=== PATIENT | female | born 1990 | race Caucasian/White ===

== ENCOUNTER 2024-06-18 19:33 | Observation (INO) | payer MEDICAID, SELFPAY ==
[2024-06-18 19:35] VITALS: BP 112/70; PULSE 97; RESP 16; RESP 98; TEMP 36.7; O2SAT 99
[2024-06-18 19:40] VITALS: BP 112/70; PULSE 97; RESP 16; TEMP 36.7
--- NOTE | 2024-06-18 20:04 | XR_ITS ---
Examination: Biophysical profile, ultrasound Date and time of exam: June 18, 2024 2024 hrs. Indications: Post dates, labor evaluation, history cholestasis of diagnosis Technique: Multiple transabdominal sonographic images of the pelvis abdomen obtained. Attention is directed to the breathing movement, gross body movement, amniotic fluid volume and tone. Findings: Amniotic fluid index 10.4 cm Total biophysical profile is 8 of 8. breathing movement is 2. Gross body movement is 2. tone is 2. Qualitative amniotic fluid volume is 2 Impression: Biophysical profile is 8 of 8.
--- NOTE | 2024-06-18 20:04 | XR_ITS ---
Examination: Complete OB ultrasound greater than 14 weeks Date and time of exam: June 18, 2024 Indications: Post dates, labor evaluation, diagnosis cholestasis of Findings: Viable intrauterine single fetus with single amniotic sac presentation cephalic spine anterior Cardiac motion 152 BPM Placenta anterior grade 3 Clinical cord insertion seen Amniotic fluid index 10.1 cm spine anterior Cervix 3.4 cm Ovaries obscured by bowel gas. Composite estimated gestational age based on BPD, head circumference, abdominal circumference, femur length is 39 weeks 4 days Estimated weight 3813 g. Survey of intracranial anatomy, spinal anatomy, abdominal anatomy, four-chamber heart performed with no abnormalities identified. Impression: Viable intrauterine gestation cephalic presentation
[2024-06-18 20:07] VITALS: BMI 38.2
[2024-06-18 20:08] VITALS: TEMP 36.7
== END 2024-06-18 21:45 | disposition home or self-care (01) ==
PROVIDERS: Admitting Provider Advanced Practice Midwife; Visit Provider Obstetrics & Gynecology
DX: Z34.83 Encounter for supervision of other normal pregnancy, third trimester (principal); Z3A.40 40 weeks gestation of pregnancy
CPT/HCPCS: 59025; 59899; 76805; 76819

== ENCOUNTER 2024-06-20 04:44 | Inpatient (IN) | payer MEDICAID, SELFPAY ==
[2024-06-20] VITALS (193 sets, daily range): BP systolic 110–173; BP diastolic 56–99; PULSE 71–107; RESP 15–18; TEMP 36.7–36.9; O2SAT 79–100; BMI 38.0
[2024-06-20 05:35] LABS: ROM Kit Lot # 5705
[2024-06-20 05:36] LABS: ROM Swab Mixed By: DELEN1; Swb Mxed in Solvent 1 min? Yes
[2024-06-20 05:42] LABS: Rupture of Fetal Membranes Positive (Negative)
[2024-06-20 05:55] LABS: Basophils % (Auto) 0 % (0-2.5); Eosinophils # (Auto) 0.1 Thou/mm3 (0.0-0.5); Eosinophils % (Auto) 1 % (0-10); Hematocrit 37.1 % (36.0-46.0); Hemoglobin 13.6 g/dL (12.0-16.0); Immature Granulocytes % (Auto) 0 % (0-0); Immature Granulocytes Auto 0.04 Thou/mm3 (0.00-0.00); Lymphocytes # (Auto) 1.6 Thou/mm3 (1.0-4.8); Lymphocytes % (Auto) 18 % (10-50); Mean Corpuscular HGB Conc 36.7 g/dl (31.0-37.0); Mean Corpuscular Hemoglobin 33.8 pg (25.0-35.0); Mean Corpuscular Volume 92 fL (80-100); Monocytes # (Auto) 0.7 Thou/mm3 (0.0-0.8); Monocytes % (Auto) 8 % (0-12); Neutrophils # (Auto) 6.5 Thou/mm3 (1.8-7.7); Neutrophils % (Auto) 72 % (37-80); Nucleated Red Blood Cell % 0 /100 WBC (0); Platelet Count 235 Thou/mm3 (140-440); RDW Standard Deviation 45.8 fL (36.4-46.3); Red Blood Count 4.02 Miln/mm3 (4.00-5.20); White Blood Count 9.1 Thou/mm3 (3.6-11.0)
[2024-06-20 06:33] LABS: Syphilis Nonreactive (Nonreactive)
--- NOTE | 2024-06-20 07:26 | PD.LDHP ---
Documentation for date of: 06/20/24 OB Labor/Induct. HPI History of Present Illness Chief complaint: labor : 4 Para: 3 Term pregnancies: 3 pregnancies: 0 Living children: 3 History of Abortions: Spontaneous and Elective: 0 History of Vaginal deliveries: 0 History of sections: No History of : No Date of last menstrual period: 08/14/23 URSZULA: 06/14/24 Gestational Age (weeks): 40 Gestational Age (days): 6 Gestational age based on last menstrual period: 44 History of present illness: 34-year-old 4 para 3 admit to labor and delivery complains of leaking fluid at 4 in the morning. Patient is been followed at care at [facility]. First visit 11 weeks. Last period was August 14, 2023. Given a due date May 20, 2024. Patient is still breast-feeding. She had her first ultrasound in November she was 12 weeks and was changed due date to June 14, 2024 and started 25 and growth has been appropriate another anatomy scans. Patient is O+, antibody screen negative, RPR nonreactive, rubella immune, hepatitis B-, hep C negative, HIV negative, GC and Chlamydia were negative. Patient had a abnormal 1 hour. And her GTT was normal she denies social habits. Denies surgery. Denies chronic illness. And GBS is negative History of Present Dating criteria: LMP confirmed by 1st trimester US Adequate Care: Yes Ultrasounds: normal 1st trimester US and normal mid trimester US Obstetrical complications: none Medical complications: none Labs Labs: Negative: Hepatitis B, HIV, Chlamydia, Gonorrhea and Group Beta Strep Review of Systems Review of Systems Systems Reviewed: All systems reviewed, normal except as documented Past Medical History Surgical History SURGICAL: Negative Section Meds Home Medications and Allergies Home Medications ?Medication ?Instructions ?Recorded ?Confirmed ?Type vit no.95-ferrous 1 tab PO QDAY 06/18/24 06/20/24 History fumarate 28 mg-folic acid 800 mcg tablet () Allergies Allergy/AdvReac Type Severity Reaction Status Date / Time No Known Allergies Allergy Verified 06/18/24 21:17 OB Exam Physical Exam Vital signs: Temp Pulse Resp BP 98.2 F 84 15 123/76 06/20/24 05:24 06/20/24 07:22 06/20/24 05:24 06/20/24 07:22 Narrative: Alert and oriented. Normal heart rate and rhythm. Lungs clear no wheezes. Gravid abdomen. Gynecoid pelvis. Estimated weight 3800 g. Vaginal exam on admission was 70%, 4, vertex, -1. heart rate category 1 with accelerations and moderate variability and regular contractions leaking clear fluid Detailed Labor and Delivery Exam Dilation (cm): 4 Effacement (%): 70 Cervix position: mid station: -1 Consistency: soft Presentation: Vertex Cervical ripeness score: 8 Membranes: ruptured Amniotic fluid: clear Baseline heart rate: 145 monitor accelerations: 15x15 monitor decelerations: None [employer] variability: Moderate (11-25) Contraction frequency (min): irreg Contraction duration (sec): 30 Tachysystole: No Contraction intensity: Mild OB Results Labs 06/20/24 05:17 Labs: Short CBC 06/20/24 Range/Units 05:17 WBC 9.1 (3.6-11.0) Thou/mm3 Hgb 13.6 (12.0-16.0) g/dL Hct 37.1 (36.0-46.0) % Plt Count 235 (140-440) Thou/mm3 Impressions Impression: early labor OB Assessment & Plan Additional Plan Induction method: none Plan: anticipate NVD and consult MD delatorre
--- NOTE | 2024-06-20 09:57 | ESPR_ITS ---
Documentation for date of: 06/20/24 OB Labor Progress Note Pelvic Exam Dilation (cm): 4 Effacement (%): 70 station: -1 Contractions Contraction frequency: irreg Contraction intensity: Mild Assessment and Plan Comments: [place] of care note. Marie is a 34yo admitted to labor and delivery for PROM, clear at 0400 on 06/20/24. She has received good care at [facility]. She is not yet having painful/regular ctx. Feels normal movement. No vaginal bleeding. Plan in place was to have her ambulate and then re-check cervix after 4 hours. Patient prefers minimal interventions if possible. She is proven to 8+ pounds. GBS negative. Only complication in was elevated 1hr glucola with normal 3hr GTT. Vitals wnl, benign exam Cat I FHRT Irregular ctx Will continue with current management plan and re-check SCE at noon. If no cervical progression at that point, will likely recommend initiation of IV pitocin for augmentation CEFM Discussed plan of care with patient and RN at bedside, answered all questions to patient's apparent satisfaction Safe to proceed Natalia Castillo MD
[2024-06-20] MEDS: OXYTOCIN in NS 30 units 30 UNIT/500 ML BAG IV (13:16)
[2024-06-20] MEDS: RINGERS LACTATED 1000 ML 1,000 ML 100 ML IV (13:16)
[2024-06-20] MEDS: RINGERS LACTATED 1000 ML 1,000 ML 999 ML IV (18:00)
[2024-06-20] MEDS: OXYTOCIN in NS 20 units 20 UNIT/1,000 ML BAG 125 UNIT IV (21:13)
[2024-06-20] MEDS: METHYLERGONOVINE INJ 0.2 MG/ML VIAL IM (21:20)
--- NOTE | 2024-06-20 21:44 | PD.LDDELS ---
Data (Soni) Data Hx Section: No : 4 Term: 3 : 0 : 0 Delivery Data (Soni) Delivery Data Delivered by: Natalia Castillo Delivery Method Delivery: Vaginal Delivery Type: Repeat Presentation: Vertex Position: OA EBL Estimated blood loss (ml): [address] [place] Data (Soni) Additional Comments Additional comments: Patient is a 34yo s/p uncomplicated at term after presenting with PROM, delivering at 2107 on 06/20/2024. On presentation, SCE was 3cm. She progressed with pitocin augmentation to C/C/0 at which point she began pushing. Epidural was attempted but unsuccessful. With good maternal pushing efforts, 's head delivered OA and restituted ESTRELLA. Left anterior shoulder delivered easily followed by posterior shoulder and corpus. Infant had spontaneous cry and was vigorous. Apgars 9/9. placed on maternal abdomen where nose/mouth were suctioned and dried/stimulated. After approximately 1 minute, cord was clamped x2 and cut by FOB. Cord blood collected for typing, but scant blood obtained since placenta began to separate before cord was clamped and there was scant blood within cord. With fundal massage and cord traction, placenta delivered spontaneously and intact with 3 vessel centrally inserted cord. Bimanual massage performed and IV pitocin given per protocol with fundus then firm at u-2cm and hemostasis noted. Inspection of perineum and vagina revealed no lacerations. Small trickle of blood, so sweep just within cervix/SAVI performed which retrieved a small amount of clot. 0.2mg IM methergine given with observed hemostasis after. All counts correct x2. Mom and infant were doing well when I left the room. Natalia Castillo MD
[2024-06-21 04:00] VITALS: BP 110/71; PULSE 102; RESP 16; TEMP 36.7
[2024-06-21 05:28] LABS: Basophils % (Auto) 0 % (0-2.5); Eosinophils % (Auto) 0 % (0-10); Hematocrit 37.4 % (36.0-46.0); Hemoglobin 13.4 g/dL (12.0-16.0); Immature Granulocytes % (Auto) 0 % (0-0); Immature Granulocytes Auto 0.05 Thou/mm3 (0.00-0.00); Lymphocytes # (Auto) 1.5 Thou/mm3 (1.0-4.8); Lymphocytes % (Auto) 9 % (10-50); Mean Corpuscular HGB Conc 35.8 g/dl (31.0-37.0); Mean Corpuscular Hemoglobin 33.6 pg (25.0-35.0); Mean Corpuscular Volume 94 fL (80-100); Monocytes # (Auto) 1.2 Thou/mm3 (0.0-0.8); Monocytes % (Auto) 7 % (0-12); Neutrophils # (Auto) 13.1 Thou/mm3 (1.8-7.7); Neutrophils % (Auto) 83 % (37-80); Nucleated Red Blood Cell % 0 /100 WBC (0); Platelet Count 206 Thou/mm3 (140-440); RDW Standard Deviation 46.4 fL (36.4-46.3); Red Blood Count 3.99 Miln/mm3 (4.00-5.20); White Blood Count 15.8 Thou/mm3 (3.6-11.0)
[2024-06-21 07:15] VITALS: BP 96/60; PULSE 98; RESP 18; TEMP 36.6; O2SAT 96
[2024-06-21] MEDS: PRENATAL VITAMIN/FE FUM/FA TABLET 1 TAB PO (08:16)
[2024-06-21] MEDS: DOCUSATE SOD 100 MG CAPSULE PO ×2 (08:16→20:36)
--- NOTE | 2024-06-21 12:38 | ESPR_ITS ---
Subjective Subjective Interval history: Marie is doing well. Ambulating no lightheadedness or SOB. Tolerating regular diet, no n/v and she has passed gas. Bonding well with baby. She is spontaneously voiding without issue. Notes lochia is decreasing with time. Only concern this morning is that she felt a bit SOB while she was sitting up talking on the phone this morning and at that time she felt flushed. But afterwards, she laid down and those feelings completely resolved without recurrence. Exam Vital Signs Temp Pulse Resp BP Pulse Ox O2 Del Method 97.9 F 98 18 96/60 96 Room Air 06/21/24 07:15 06/21/24 07:15 06/21/24 07:15 06/21/24 07:15 06/21/24 07:15 06/21/24 07:15 Narrative Exam General: well developed, well nourished, no acute distress, conversant Cardiac: normal heart rate Lungs: breathing without distress Abdomen: soft, gravid, non-tender, no rebound or guarding Extremities: no pain with palpation of calves Objective Labs 06/21/24 05:00 Labs: Laboratory Results - last 24 hr 06/21/24 05:00 WBC 15.8 H D RBC 3.99 L Hgb 13.4 Hct 37.4 MCV 94 MCH 33.6 MCHC 35.8 RDW Std Deviation 46.4 H Plt Count 206 Neut % (Auto) 83 H Lymph % (Auto) 9 L [place]cher % (Auto) 7 Eos % (Auto) 0 Baso % (Auto) 0 Neut # (Auto) 13.1 H Lymph # (Auto) 1.5 [place] # (Auto) 1.2 H Eos # (Auto) 0.0 Baso # (Auto) 0.0 Immature Gran # (Auto) 0.05 H Absolute Nucleated RBC 0.00 Immature Gran % 0 Nucleated RBC % 0 Assessment & Plan Problem List (1) Normal labor and delivery: Status: Acute Assessment and plan: Patient is a 34yo s/p uncomplicated at term after presenting with PROM, delivering at 2107 on 06/20/2024. Doing well on PPD 1. Vitals wnl, benign exam. Hemodynamically stable with no evidence of infection. Appropriate change in H/H. Infant will be kept by dandy tender another night since she delivered late last night and macrosomic, so observing glucose. Plan: -Continue routine care -Regular diet -Encourage ambulation -Anticipate discharge home tomorrow if meeting all milestones Natalia Castillo MD Time Spent With Patient Time: Total time spent is greater than 50% in coordination of care (as documented) at patient's floor/unit and/or counseling patient:
[2024-06-21] MEDS: IBUPROFEN TAB 400 MG TABLET 800 MG PO (13:38)
[2024-06-21 17:00] VITALS: BP 109/71; PULSE 100; RESP 18; TEMP 36.6; O2SAT 98
[2024-06-21 20:20] VITALS: BP 124/78; PULSE 99; RESP 16; TEMP 36.8; O2SAT 97
[2024-06-21] MEDS: ACETAMINOPHEN 325 MG TABLET 650 MG PO (20:36)
[2024-06-22 04:10] VITALS: BP 108/97; PULSE 63; RESP 16; TEMP 36.7; O2SAT 99
[2024-06-22] MEDS: IBUPROFEN TAB 400 MG TABLET 800 MG PO (04:26)
--- NOTE | 2024-06-22 08:39 | PD.LDPPPRG ---
Subjective Subjective Interval history: PPD2 Patient doing well no issues . Baby at beside. Pain well controlled, bleeding within normal limits. Voiding without issues. No lightheadedness when walking. Exam Vital Signs Temp Pulse Resp BP Pulse Ox O2 Del Method 98.1 F 63 16 108/97 H 99 Room Air 06/22/24 04:10 06/22/24 04:10 06/22/24 04:10 06/22/24 04:10 06/22/24 04:10 06/22/24 04:10 Additional findings Additional findings: General: NAD RESP: normal work of breathing Abdomen: soft, gravid, non-tender, no rebound or guarding Extremities: no pain with palpation of calves and no unilateral swelling Objective Labs 06/21/24 05:00 Assessment & Plan Problem List (1) Normal labor and delivery: Status: Acute Plan Comment Plan Comment: - Meeting all milestones - Ready for discharge home - Hemodynamically stable - Home precautions review with plan for clinic follow-up Time Spent With Patient Time: Total time spent is greater than 50% in coordination of care (as documented) at patient's floor/unit and/or counseling patient:
[2024-06-22 09:00] VITALS: BP 109/71; PULSE 92; RESP 15; TEMP 36.7; O2SAT 96
[2024-06-22] MEDS: PRENATAL VITAMIN/FE FUM/FA TABLET 1 TAB PO (09:36)
[2024-06-22] MEDS: DOCUSATE SOD 100 MG CAPSULE PO (09:36)
--- NOTE | 2024-06-22 09:44 | ESDS_ITS ---
DS: Providers Provider Date of admission: 06/20/24 04:44 Primary care physician: Physician No Primary/Family Admitting Provider: Natalia Castillo MD Attending Provider on Admission: Maria Del Carmen Leahy MD Consults: 06/20/24 21:37 Referral Routine Comment: Attending Provider on DC: Maria Del Carmen Leahy MD Discharging Provider: Maria Del Carmen Leahy MD DS: Diagnosis Discharge Diagnosis (1) Normal labor and delivery: Status: Acute Problem List Completed Was Problem List Reviewed/Reconciled?: Yes Summary/Hosp Course Brief History: 34-year-old 4 para 3 admit to labor and delivery complains of leaking fluid at 4 in the morning. Patient is been followed at care at [facility]. First visit 11 weeks. Last period was August 14, 2023. Given a due date May 20, 2024. Patient is still breast-feeding. She had her first ultrasound in November she was 12 weeks and was changed due date to June 14, 2024 and started 25 and growth has been appropriate another anatomy scans. Patient is O+, antibody screen negative, RPR nonreactive, rubella immune, hepatitis B-, hep C negative, HIV negative, GC and Chlamydia were negative. Patient had a abnormal 1 hour. And her GTT was normal she denies social habits. Denies surgery. Denies chronic illness. And GBS is negative. She had pitocin augmentation and had an uncomplicated on 06/20/2024 EBL 300cc, delivered healthy infant , weighing 4285g, with Apgars 9/9. Patient received routine care and was meeting all milestones on PPD2 and was discharged home in stable condition. Status at Discharge Overall status at discharge: patient is back to baseline Time Spent with Patient Time attestation: Total time spent providing and/or coordinating discharge services: Exam Vital Signs Temp Pulse Resp BP Pulse Ox O2 Del Method 98.1 F 63 16 108/97 H 99 Room Air 06/22/24 04:10 06/22/24 04:10 06/22/24 04:10 06/22/24 04:10 06/22/24 04:10 06/22/24 04:10 Narrative Exam General: NAD RESP: normal work of breathing Abdomen: soft, gravid, non-tender, no rebound or guarding, Fundus firm Extremities: no pain with palpation of calves and no unilateral swelling Discharge Plan Plan Patient Disposition: HOME (Self Care) Patient condition on transfer: Stable Health Concerns: Uncomplicated spontaneous vaginal delivery Prescriptions/Referrals Prescriptions/Med Rec: New acetaminophen 325 mg Tablet 650 mg PO Q4H PRN (Reason: See Comments) Qty: 25 0RF ibuprofen 400 mg Tablet 800 mg PO X1 PRN (Reason: uterine cramping) Qty: 25 0RF docusate sodium 100 mg Capsule 100 mg PO BID Qty: 20 0RF Continued PNV cmb#95-ferrous fumarate-FA [] 28 mg iron- 800 mcg tablet 1 tab PO QDAY Patient Comments: TAKE 1 TABLET BY MOUTH EVERY DAY Referrals: No Primary/Family,Physician [Primary Care Provider] - Patient/Caregiver Discharge Instructions Discharge Activity: activity as tolerated Other Discharge Activity Instructions:: Vaginal rest and no heavy lifting for 6 weeks. Other Discharge Diet Instructions: Regular diet Education Materials: After a Vaginal Print Language: Malaysian Stand Alone Forms: Alondra Award Info., Patient Portal Info Letter Discharge Order Discharge Orders: Discharge (Routine); Ordered 06/22/24 Ordered By: Maria Del Carmen Leahy Planned Discharge Date 06/22/24
== END 2024-06-22 11:40 | disposition home or self-care (01) | DRG 560 ==
LOC: S4SX 22:05 → S4NX 23:52
PROVIDERS: Advanced Practice Midwife; Admitting Provider Obstetrics & Gynecology; Visit Provider Obstetrics & Gynecology
DX: O48.0 Post-term pregnancy (principal); O36.63X0 Maternal care for excessive fetal growth, third trimester, not applicable or unspecified; Z37.0 Single live birth; Z3A.40 40 weeks gestation of pregnancy
CPT/HCPCS: 36415; 59409; 84112; 85025; 86780; 86850; 86900; 86901; 94762; J2210; J2590; J7120; A9270